=== PATIENT | female | born 1940 | race Caucasian/White ===

== ENCOUNTER 2020-11-04 18:04 | Inpatient (IN) | payer MEDICARE ==
[~2020-11-04 18:04] MED LIST: Iopamidol-370 76% 500 ML 1 ML ONE
[2020-11-04 18:49] LABS: #Eosinphils 0.1 thou/uL (0.0-0.7); #Lymphocytes 1.8 thou/uL (1.20-3.40); #Monocytes 0.6 thou/uL (0.11-0.59); #Neutrophils 4.5 thou/uL (1.40-6.50); %Basophils 0.2 % (0.0-1.0); %Eosinophils 1.7 % (0.0-10.0); %Monocytes 8.3 % (0.0-10.0); %Neutrophils 63.8 % (42.0-75.0); Hemoglobin 15.3 g/dL (12.0-16.0); Mean Corpuscular HGB CONC 30.3 g/dL (32.0-36.0); Mean Corpuscular Hemoglobin 28.1 pg (27.0-31.0); Mean Corpuscular Volume 92.8 fL (78.0-98.0); Mean Platelet Volume 8.7 fL (7.4-10.4); Platelet Count 142 thou/uL (130-400); RBC Distribution Width 18.8 % (11.5-14.5); Red Blood Cell (RBC) Count 5.45 mill/uL (4.20-5.40)
[2020-11-04 19:03] LABS: PTT 32.7 sec (22.9-36.1); Prothrombin Time 13.4 sec (12.0-14.7)
[2020-11-04 19:21] LABS: ALT (SGPT) 10 U/L (8-55); AST (SGOT) 18 U/L (5-34); Albumin 3.5 g/dL (3.4-4.8); Alkaline Phosphatase 82 U/L (40-110); Anion Gap 16 mmol/L (10-20); BUN (Urea Nitrogen) 14 mg/dL (9.8-20.1); Bilirubin, Total 0.5 mg/dL (0.2-1.2); CK (CPK) 39 U/L (29-168); Calc. Creatinine Clearance 0 mL/min (70-130); Calcium 9.1 mg/dL (7.8-10.44); Carbon Dioxide 28 mmol/L (23-31); Chloride 98 mmol/L (98-107); Globulin 2.8 g/dL (2.4-3.5); Glucose 133 mg/dL (83-110); Potassium 4.1 mmol/L (3.5-5.1); Protein, Total 6.3 g/dL (5.8-8.1); Sodium 138 mmol/L (136-145)
[2020-11-04 19:26] LABS: Bilirubin Negative (Negative); Blood, Urine Negative (Negative); Clarity Clear (Clear); Glucose, Urine (Dipstick) Normal (Negative); Ketone, Urine Negative (Negative); Leukocyte Negative Leu/uL (Negative); Nitrite Negative (Negative); Protein, Urine (Dipstick) 10 mg/dL (Neg-Trace); Urobilinogen Normal mg/dL (Less than 2)
[2020-11-04 19:28] LABS: Specific Gravity, Urine 1.044 (1.002-1.036)
[2020-11-04 19:34] LABS: Amphetamine Not Detected (NotDetected); Barbiturates Screen Not Detected (NotDetected); Benzodiazepine Screen Not Detected (NotDetected); Cocaine Metabolite Screen Not Detected (NotDetected); Medtox Reader # READER 4; Methadone Not Detected (NotDetected); Methamphetamine Not Detected (NotDetected); Opiate Screen Not Detected (NotDetected); Phencyclidine (PCP) Not Detected (NotDetected); THC/Cannabinoid Screen Not Detected (NotDetected); Tricyclic Screen Not Detected (NotDetected)
[2020-11-04] MEDS ORDERED: Aspirin 325 MG TAB ONE (19:34)
[2020-11-04 19:35] LABS: Medtox Control Line Valid? VALID (VALID); Oxycodone Screen Not Detected (NotDetected)
[2020-11-04 19:41] LABS: CKMB 2.4 ng/mL (0-6.6)
[2020-11-04] MEDS ORDERED: Ondansetron PF 4 MG/2 ML Vial IVP PRN (20:34)
[2020-11-04] MEDS ORDERED: Acetaminophen 325 MG TAB PO PRN (20:34)
[2020-11-04] MEDS ORDERED: hydrALAZINE 20 MG/ML VIAL SLOW IVP PRN (20:37)
[2020-11-04] MEDS: HYDROcodone/Acetaminophen 5/325 mg Tablet PO PRN (23:06)
[2020-11-04 23:16] LABS: Troponin I 0.153 ng/mL (< 0.028)
[2020-11-05 01:19] LABS: Troponin I 0.141 ng/mL (< 0.028)
[2020-11-05 05:21] LABS: #Lymphocytes 1.4 thou/uL (1.20-3.40); #Monocytes 1.1 thou/uL (0.11-0.59); #Neutrophils 10.5 thou/uL (1.40-6.50); %Basophils 0.2 % (0.0-1.0); %Eosinophils 0.3 % (0.0-10.0); %Monocytes 8.3 % (0.0-10.0); %Neutrophils 80.3 % (42.0-75.0); Hemoglobin 13.6 g/dL (12.0-16.0); Mean Corpuscular HGB CONC 30.1 g/dL (32.0-36.0); Mean Corpuscular Hemoglobin 27.4 pg (27.0-31.0); Platelet Count 149 thou/uL (130-400); RBC Distribution Width 18.8 % (11.5-14.5); Red Blood Cell (RBC) Count 4.96 mill/uL (4.20-5.40); White Blood Cell (WBC) Count 13.1 thou/uL (4.8-10.8)
[2020-11-05 05:37] LABS: Anion Gap 13 mmol/L (10-20); BUN (Urea Nitrogen) 16 mg/dL (9.8-20.1); Calc. Creatinine Clearance 0 mL/min (70-130); Carbon Dioxide 30 mmol/L (23-31); Chloride 99 mmol/L (98-107); Glucose 110 mg/dL (83-110); Potassium 3.9 mmol/L (3.5-5.1); Sodium 138 mmol/L (136-145)
[2020-11-05 05:41] LABS: Troponin I 0.157 ng/mL (< 0.028)
[2020-11-05 06:37] VITALS: BMI 18.2
[2020-11-05] MEDS: Amlodipine 5 MG TAB PO SCH (08:31)
[2020-11-05] MEDS: HYDROcodone/Acetaminophen 5/325 mg Tablet PO PRN (08:32)
[2020-11-05] MEDS: Enoxaparin Sodium 30 MG/0.3 ML SYRINGE SC SCH (08:33)
[2020-11-05] MEDS ORDERED: Aspirin 325 MG TAB PO SCH (10:15)
[2020-11-05] MEDS ORDERED: Lorazepam 2 MG/ML VIAL SLOW IVP SCH (10:15)
[2020-11-05 14:27] LABS: SARS-CoV-2 PCR by NAA Not Detected (NotDetected)
[2020-11-06 05:25] LABS: Cardiac Risk 4.1 (Less than 4.5)
[2020-11-06] MEDS: HYDROcodone/Acetaminophen 5/325 mg Tablet PO PRN (05:45)
[2020-11-06] MEDS: Amlodipine 5 MG TAB PO SCH (08:58)
[2020-11-06] MEDS: Levothyroxine Sodium 100 MCG TAB PO SCH (08:58)
[2020-11-06] MEDS: Enoxaparin Sodium 30 MG/0.3 ML SYRINGE SC SCH (08:59)
[2020-11-06] MEDS ORDERED: Aspirin 325 MG TAB PO SCH (09:00)
[2020-11-06] MEDS: Rosuvastatin 20 MG TAB PO SCH (20:33)
[2020-11-06] MEDS ORDERED: Atorvastatin Calcium 40 MG TAB PO SCH (21:00)
[2020-11-07] MEDS: Amlodipine 5 MG TAB PO SCH (09:07)
[2020-11-07] MEDS: Levothyroxine Sodium 100 MCG TAB PO SCH (09:07)
[2020-11-07] MEDS: Enoxaparin Sodium 30 MG/0.3 ML SYRINGE SC SCH (09:07)
[2020-11-07] MEDS: Aspirin Chewable 81 MG TAB PO SCH (09:09)
[2020-11-07] MEDS: Rosuvastatin 20 MG TAB PO SCH (19:50)
[2020-11-08] MEDS: Amlodipine 5 MG TAB PO SCH (08:39)
[2020-11-08] MEDS: Levothyroxine Sodium 100 MCG TAB PO SCH (08:40)
[2020-11-08] MEDS: Enoxaparin Sodium 30 MG/0.3 ML SYRINGE SC SCH (08:40)
[2020-11-08] MEDS: Aspirin Chewable 81 MG TAB PO SCH (08:40)
[2020-11-08] MEDS: Rosuvastatin 20 MG TAB PO SCH (19:54)
[2020-11-09] MEDS: Levothyroxine Sodium 100 MCG TAB PO SCH (08:32)
[2020-11-09] MEDS: Enoxaparin Sodium 30 MG/0.3 ML SYRINGE SC SCH (08:32)
[2020-11-09] MEDS: Aspirin Chewable 81 MG TAB PO SCH (08:32)
[2020-11-09] MEDS: Amlodipine 5 MG TAB PO SCH (08:32)
[2020-11-09 11:31] VITALS: BP 93/51; TEMP 97.6
== END 2020-11-09 14:45 | disposition home health service (06) | DRG 77 ==
LOC: ERS 18:04 → 2SE 21:33
PROVIDERS: ADMIT Internal Medicine; ATTEND Internal Medicine
DX: I67.4 Hypertensive encephalopathy (principal); I21.A1 Myocardial infarction type 2; I16.1 Hypertensive emergency; J96.10 Chronic respiratory failure, unspecified whether with hypoxia or hypercapnia; J44.9 Chronic obstructive pulmonary disease, unspecified; I10 Essential (primary) hypertension; I25.10 Atherosclerotic heart disease of native coronary artery without angina pectoris; G89.29 Other chronic pain; E03.9 Hypothyroidism, unspecified; E78.5 Hyperlipidemia, unspecified; F41.9 Anxiety disorder, unspecified; R56.9 Unspecified convulsions; Z95.5 Presence of coronary angioplasty implant and graft; Z87.891 Personal history of nicotine dependence; Z86.73 Personal history of transient ischemic attack (TIA), and cerebral infarction without residual deficits; Z79.82 Long term (current) use of aspirin; Z99.81 Dependence on supplemental oxygen; Z88.0 Allergy status to penicillin; Z88.1 Allergy status to other antibiotic agents
CPT/HCPCS: 36415; 36416; 51701; 70450; 70496; 70498; 70551; 71045; 80048; 80053; 80061; 80306; 80307; 81003; 82550; 82553; 83880; 84443; 84484; 85025; 85610; 85730; 87635; 90471; 90732; 93005; 93306; 93880; 94760; 95816; 95819; G0009; J1650; J2060; J2405; Q9967; U0003; U0005

== ENCOUNTER 2024-01-10 00:20 | Inpatient (IN) | payer MEDICARE ==
[2024-01-10] MEDS ORDERED: Acetaminophen 325 MG TAB PO PRN (00:49)
[2024-01-10] MEDS ORDERED: Acetaminophen 650 MG Suppository PR PRN (00:49)
[2024-01-10] MEDS ORDERED: Ondansetron ODT 4 MG TAB PO PRN (00:49)
[2024-01-10 02:03] VITALS: BMI 21.4
[2024-01-10] MEDS: Lactated Ringer's 500 ML IV SCH (02:22)
[2024-01-10] MEDS: Mometasone 200 MCG/Formoterol 5 MCG 120 PUFF INHALER INH SCH ×2 (02:36→19:09)
[2024-01-10 05:43] LABS: Hemoglobin 10.8 g/dL (12.0-16.0); Mean Corpuscular HGB CONC 31.8 g/dL (32.0-36.0); Mean Corpuscular Hemoglobin 31.1 pg (27.0-31.0); Mean Platelet Volume 9.3 fL (7.4-10.4); Platelet Count 145 10x3/uL (130-400); RBC Distribution Width 14.5 % (11.5-14.5); Red Blood Cell (RBC) Count 3.47 mill/uL (4.20-5.40)
[2024-01-10 06:17] LABS: Anion Gap 11 mmol/L (10-20); BUN (Urea Nitrogen) 31 mg/dL (9.8-20.1); Calc. Creatinine Clearance 40 mL/min (70-130); Calcium 8.5 mg/dL (7.8-10.44); Carbon Dioxide 26 mmol/L (23-31); Chloride 103 mmol/L (98-107); Estimated GFR 66; Glucose 88 mg/dL (83-110); Potassium 4.4 mmol/L (3.5-5.1); Sodium 136 mmol/L (136-145)
[2024-01-10] MEDS: Levothyroxine Sodium 125 MCG TAB PO SCH (06:29)
[2024-01-10 06:32] LABS: Band 41 % (5-11); Eosinophils 2 % (0-10); Lymphocytes 15 % (21-51); Monocytes 5 % (0-10); Neutrophil 37 % (42-75); Platelet Adequacy Comment Platelets Normal; RBC Morphology Within Normal Limits; Smudge Cells 7.6 %
[2024-01-10] MEDS: Famotidine/PF 20 mg/2ml Vial SLOW IVP SCH (08:38)
[2024-01-10] MEDS: Metoprolol Tartrate 25 MG TAB PO SCH (08:38)
[2024-01-10] MEDS: Famotidine 20 MG TAB PO SCH (08:38)
[2024-01-10] MEDS: Aspirin 81 mg Enteric Coated Tablet PO SCH (08:38)
[2024-01-10] MEDS ORDERED: MD-Gastroview 120 ML BOT ONE (11:57)
[2024-01-10] MEDS: Mometasone 100 MCG/Formoterol 5 MCG 120 PUFF INHALER INH SCH (13:53)
[2024-01-10] MEDS: Pantoprazole 40 MG VIAL IVP SCH (20:41)
[2024-01-11 10:34] LABS: #Basophils Less than 0.03 10x3/uL (0.0-0.2); %Basophils 0.2 % (0.0-1.0); %Eosinophils 2.1 % (0.0-10.0); %Lymphocytes 19.7 % (21.0-51.0); %Monocytes 15.3 % (0.0-10.0); %Neutrophils 62.1 % (42.0-75.0); Hematocrit 35.4 % (36.0-47.0); Hemoglobin 11.1 g/dL (12.0-16.0); Mean Corpuscular HGB CONC 31.4 g/dL (32.0-36.0); Mean Corpuscular Volume 98.9 fL (78.0-98.0); Mean Platelet Volume 9.5 fL (7.4-10.4); Platelet Count 156 10x3/uL (130-400); RBC Distribution Width 14.2 % (11.5-14.5); Red Blood Cell (RBC) Count 3.58 mill/uL (4.20-5.40)
[2024-01-11 11:07] LABS: Anion Gap 12 mmol/L (10-20); BUN (Urea Nitrogen) 18 mg/dL (9.8-20.1); Calc. Creatinine Clearance 50 mL/min (70-130); Calcium 8.9 mg/dL (7.8-10.44); Carbon Dioxide 30 mmol/L (23-31); Chloride 103 mmol/L (98-107); Estimated GFR 85; Glucose 105 mg/dL (83-110); Potassium 3.3 mmol/L (3.5-5.1); Sodium 142 mmol/L (136-145)
[2024-01-11] MEDS: Potassium Chloride 20 MEQ TAB PO SCH (14:06)
[2024-01-11] MEDS: Ondansetron PF 4 MG/2 ML Vial IVP PRN (19:52)
[2024-01-12] MEDS: Milk Of Magnesia 30 ML UDCUP PO SCH (11:19)
[2024-01-12] MEDS: Polyethylene Glycol 3350 17 GM Packet PO SCH (11:20)
[2024-01-12] MEDS ORDERED: Electrolyte Replacement Protocol FS PRN (15:45)
[2024-01-12] MEDS ORDERED: Electrolyte Replacement Protocol 1 EACH FS SCH (15:45)
[2024-01-12 16:34] LABS: Hematocrit 35.5 % (36.0-47.0); Hemoglobin 11.6 g/dL (12.0-16.0); Mean Corpuscular HGB CONC 32.7 g/dL (32.0-36.0); Mean Corpuscular Hemoglobin 31.5 pg (27.0-31.0); Mean Corpuscular Volume 96.5 fL (78.0-98.0); Mean Platelet Volume 9.1 fL (7.4-10.4); Platelet Count 145 10x3/uL (130-400); RBC Distribution Width 13.2 % (11.5-14.5); Red Blood Cell (RBC) Count 3.68 mill/uL (4.20-5.40)
[2024-01-12 16:57] LABS: Anion Gap 13 mmol/L (10-20); BUN (Urea Nitrogen) 11 mg/dL (9.8-20.1); Calc. Creatinine Clearance 48 mL/min (70-130); Calcium 9.3 mg/dL (7.8-10.44); Carbon Dioxide 32 mmol/L (23-31); Chloride 97 mmol/L (98-107); Estimated GFR 82; Glucose 111 mg/dL (83-110); Magnesium 1.6 mg/dL (1.6-2.6); Potassium 4.2 mmol/L (3.5-5.1); Sodium 138 mmol/L (136-145)
[2024-01-12 17:18] LABS: Band 9 % (5-11); Eosinophils 3 % (0-10); Lymphocytes 21 % (21-51); Metamyelocyte 3 % (0-0); Monocytes 12 % (0-10); Neutrophil 46 % (42-75); Platelet Adequacy Comment Platelets Normal; Polychromasia SLIGHT = 2-3 cells HPF (0-2); Reactive Lymphocytes 7 % (0-10); Target Cells SLIGHT = 2-5 cells HPF (0-1); Tear Drops SLIGHT = 2-5 cells HPF (0-1); Toxic Granulation SLIGHT
[2024-01-12] MEDS: Magnesium 2 GM/50 ML(in water) 2 GM in Premix 1 BAG IVPB SCH (19:51)
[2024-01-12] MEDS: Potassium Chloride 20 MEQ TAB PO SCH (19:52)
[2024-01-12] MEDS: Senokot S 8.6-50 MG TAB PO SCH (21:24)
[2024-01-13 07:48] LABS: Anion Gap 9 mmol/L (10-20); BUN (Urea Nitrogen) 12 mg/dL (9.8-20.1); Calc. Creatinine Clearance 52 mL/min (70-130); Calcium 8.9 mg/dL (7.8-10.44); Carbon Dioxide 33 mmol/L (23-31); Chloride 97 mmol/L (98-107); Estimated GFR 87; Glucose 94 mg/dL (83-110); Potassium 4.3 mmol/L (3.5-5.1); Sodium 135 mmol/L (136-145)
[2024-01-13] MEDS: Polyethylene Glycol 3350 17 GM Packet PO SCH (08:20)
[2024-01-13 08:26] VITALS: BP 159/85; TEMP 98.5
== END 2024-01-13 12:07 | disposition home or self-care (01) | DRG 390 ==
LOC: T4-A 00:20 → OBSVTOIN 01-12 11:07
PROVIDERS: ADMIT Student in an Organized Health Care Education/Training Program; ATTEND Family Medicine
DX: K56.609 Unspecified intestinal obstruction, unspecified as to partial versus complete obstruction (principal); J44.9 Chronic obstructive pulmonary disease, unspecified; E78.5 Hyperlipidemia, unspecified; E27.8 Other specified disorders of adrenal gland; I10 Essential (primary) hypertension; E03.9 Hypothyroidism, unspecified; E87.6 Hypokalemia; R09.89 Other specified symptoms and signs involving the circulatory and respiratory systems; Z88.1 Allergy status to other antibiotic agents; Z88.0 Allergy status to penicillin; Z88.8 Allergy status to other drugs, medicaments and biological substances; Z79.82 Long term (current) use of aspirin; Z79.890 Hormone replacement therapy
CPT/HCPCS: 36415; 71045; 74250; 80048; 83735; 85025; 96374; 96375; 96376; C9113; G0378; J2405; J3475; Q9963